=== PATIENT | male | born 1975 | race Caucasian/White ===

== ENCOUNTER → 2017-12-25 | Outpatient (CLI) | payer BC | LOC: MHCPAIN 07:55 | DX: G89.29 Other chronic pain (principal); M47.817 Spondylosis without myelopathy or radiculopathy, lumbosacral region; M47.814 Spondylosis without myelopathy or radiculopathy, thoracic region; M53.3 Sacrococcygeal disorders, not elsewhere classified; M79.2 Neuralgia and neuritis, unspecified; F17.200 Nicotine dependence, unspecified, uncomplicated | CPT/HCPCS: G0463 ==

== ENCOUNTER → 2018-01-25 | Outpatient (CLI) | payer BC | LOC: MHCPAIN 07:45 | DX: G89.29 Other chronic pain (principal); M47.817 Spondylosis without myelopathy or radiculopathy, lumbosacral region; M53.3 Sacrococcygeal disorders, not elsewhere classified; M47.814 Spondylosis without myelopathy or radiculopathy, thoracic region | CPT/HCPCS: G0463 ==

== ENCOUNTER → 2018-02-18 | Outpatient (CLI) | payer BC | LOC: MHCPAIN 11:55 | DX: Z53.8 Procedure and treatment not carried out for other reasons (principal) | CPT/HCPCS: J1040; Q9967 ==

== ENCOUNTER → 2020-04-28 | Outpatient (CLI) | payer BC | LOC: COL.RAD 04-15 09:45 | DX: R90.82 White matter disease, unspecified (principal) | CPT/HCPCS: A9585 ==

== ENCOUNTER → 2020-12-03 | Outpatient (CLI) | payer BC | LOC: COL.RAD 09:01 | DX: M51.26 Other intervertebral disc displacement, lumbar region (principal) | CPT/HCPCS: A9585 ==

== ENCOUNTER 2021-04-14 15:44 | Emergency (ER) | payer BC ==
[~2021-04-14] VITALS: Ht 175.3 cm; Wt 113.6 kg
[2021-04-14 16:01] VITALS: TEMP 98.5
[2021-04-14 16:27] LABS: ALANINE AMINOTRANSFERASE 58 U/L (4-49); ALBUMIN 4.2 gm/dL (3.5-5.0); ALKALINE PHOSPHATASE 76 U/L (50-136); ANION GAP 10 mmol/L (7-16); AST,SGOT 35 U/L (15-37); BILIRUBIN,TOTAL 0.5 mg/dL (0.0-1.0); BLOOD UREA NITROGEN 12 mg/dL (9-20); CALCIUM 9.2 mg/dL (8.4-10.2); CARBON DIOXIDE 26 mmol/L (22-30); CHLORIDE 102 mmol/L (98-107); GLUCOSE 395 mg/dL (74-106); POTASSIUM 4.3 mmol/L (3.4-5.0); SODIUM 138 mmol/L (137-145); TOTAL PROTEIN 8.1 gm/dL (6.4-8.2)
[2021-04-14 16:28] LABS: BASO % 0.6 % (0.0-2.0); EOS # 0.1 (0.0-0.7); EOS % 1.3 % (0-4.0); GRAN # 4.6 (1.4-6.5); GRAN % 64.9 % (42.2-75.2); HEMATOCRIT 50.8 % (42.0-52.0); HEMOGLOBIN 17.2 g/dl (13.5-18.0); LYMPH # 1.6 (1.2-3.4); LYMPH % 22.4 % (20.0-51.0); MEAN CELL VOLUME 93 fl (80.0-100.0); MEAN CORPUSCULAR HEMOGLOBIN 31 pg (27.0-31.0); MEAN CORPUSCULAR HGB CONC 34 g/dl (33.0-37.0); MEAN PLATELET VOLUME 10.5 fl (7.4-10.4); MONO # 0.7 (0.1-0.6); MONO % 10.4 % (1.7-9.3); PLATELET COUNT 254 K/mm3 (130-400); RED BLOOD COUNT 5.49 M/mm3 (4.20-5.60); REDCELL DISTRIBUTION WIDTH-CV 13.1 % (11.5-14.5)
[2021-04-14 16:41] LABS: PROTHROMBIN TIME 11.6 SECONDS (9.7-12.8); TROPONIN-I < 0.012 ng/mL (0.000-0.035)
[2021-04-14 16:43] LABS: PARTIAL THROMBOPLASTIN TIME 28.5 SECONDS (26.0-37.0)
[2021-04-14 18:07] VITALS: BP 144/73; PULSE 84
== END 2021-04-14 18:07 | disposition home or self-care (01) ==
LOC: COL.ER 15:44
PROVIDERS: Family Medicine
DX: E86.0 Dehydration (principal); E10.9 Type 1 diabetes mellitus without complications; F17.210 Nicotine dependence, cigarettes, uncomplicated
CPT/HCPCS: J7120

== ENCOUNTER 2022-01-11 15:07 | Inpatient (IN) | payer BC ==
[~2022-01-11] VITALS: Ht 177.8 cm; Wt 101.3 kg
[2022-01-11] MEDS ORDERED: AMPICILLIN AND1 PD3 INJ (16:23)
[2022-01-11] MEDS ORDERED: VANCOMYCIN IV (16:25)
[2022-01-11] MEDS ORDERED: AMOXICILLIN 8751 TAB PO (16:26)
[2022-01-11] MEDS ORDERED: NOVOLOG FLEX100 U/ML SQ (16:29)
[2022-01-11] MEDS ORDERED: NOVOLOG FLEX100 U/ML (16:30)
[2022-01-11] MEDS ORDERED: ASPIRIN 81M81 MG/TA2 PO (16:32)
[2022-01-11] MEDS ORDERED: SEMGLEE (Y100 UNIT/2 SQ (16:32)
[2022-01-11] MEDS ORDERED: LIPITOR20 MG PO (16:33)
[2022-01-11] MEDS ORDERED: PLAVIX 75MG TAB75 MG PO (16:33)
[2022-01-11] MEDS ORDERED: NEURONTIN300 MG/CAP PO (16:34)
[2022-01-11] MEDS ORDERED: ZETIA 10MG TAB10 MG PO (16:34)
[2022-01-11] MEDS ORDERED: LOPID 600M600 MG/TAB PO (16:35)
[2022-01-11] MEDS ORDERED: PRINIVIL20 MG PO ×2 (16:36)
[2022-01-11] MEDS ORDERED: LOPRESSOR 550 MG/TAB PO (16:37)
[2022-01-11] MEDS ORDERED: VITAMIN D31000 IU PO (16:38)
[2022-01-11 17:27] VITALS: BP 119/56; PULSE 74; TEMP 99.7
--- NOTE | 2022-01-11 17:41 | NUR ---
Pt arrived to unit at approx 1720. Admission assessment and intake completed. Left inner leg has approx 57 gab. One suture noted to inner thigh. No other skin concerns. Orientation provided to room and unit. Pt. denies valuables. Call light is within his reach. He denies further needs at this time
[2022-01-11 18:05] VITALS: BP 119/56; PULSE 74; TEMP 99.7
--- NOTE | 2022-01-11 18:42 | NUR ---
Dsg change completed to left leg incision. Approx 57 gab present. Incision is well approximated w/out redness, swelling, drainage. Xeroform, abd pads placed above gab. 2 circular wounds present to anterior thigh from drains that were removed prior to admission - covered with bandaids. One suture to inner thigh noted - CDI. Jose G wrap applied from thigh to mid calf
--- NOTE | 2022-01-11 18:57 | NUR ---
PICC Line caps changed x 2. Flushes well with blood return noted
--- NOTE | 2022-01-11 21:00 | NUR ---
PT RESTING IN BED. RELAXED. PAIN UNDER CONTROL. DENIES NEEDS AT THIS TIME. CALL LIGHT IN REACH. BED ALARM SET.
[2022-01-12 06:22] VITALS: BP 107/54; PULSE 74; TEMP 98
--- NOTE | 2022-01-12 06:25 | NUR ---
PT HAS SLEPT WELL THROUGH THE NIGHT. RUSS WRAP TO LT LEG INTACT.
--- NOTE | 2022-01-12 14:09 | NUR ---
PATIENT DRESSING TO LEFT INNER THIGH CHANGED THIS MORNING. REINFORCED WITH MORE XEROFORM AND ABD. RUSS WRAP REWRAPPED.
--- NOTE | 2022-01-12 15:10 | NUR ---
Photo Lab Manager met with patient to complete initial intake as patient is new to [facility]. Patient lives alone in [place] and sees Dr. Alexander for primary care. Patient obtains medications from [facility] in and is employed at [employer] in [place]. Patient does not have any DME and is normally independent with ADLS. Patient wanted to complete DPOA-HC and chose to designate his sister, Laquita and friend, Brie. SW placed copy in chart and provided original and copies to patient. SW will continue to monitor for discharge needs.
[2022-01-12 17:58] VITALS: BP 115/49; PULSE 79; TEMP 99
--- NOTE | 2022-01-12 21:24 | NUR ---
PT RESTING IN BED. ABLE TO MOBILIZE IN BED FOR COMFORT. SEE NOTES ABOUT RED RASH TO BACK AND COCCYX IN ASSESSMENT NOTES. PT STILL HUNGRY AFTER DINNER. AT SANDWICH AND APPLESAUCE. VANCOMYCIN IN FUSING TO RT PICC LINE. NO OTHER NEEDS. CALL LIGHT IN REACH, BED ALARM SET.
[2022-01-13 05:42] VITALS: BP 111/47; PULSE 75; TEMP 98
--- NOTE | 2022-01-13 05:50 | NUR ---
PT NOT REEIVING ADEQUATE PAIN RELIEF. GAVE 2ND NORCO AT THIS TIME. CALL LIGHT IN REACH. BED ALARM SET
--- NOTE | 2022-01-13 08:18 | NUR ---
PATIENT HAS NO NEW CONCERNS. PATIENT GIVEN PRN PAIN MEDICATION EARLY THIS MORNING. BLOOD SUGARS STABLE.
[2022-01-13 18:00] VITALS: BP 111/51; PULSE 76; TEMP 99.7
--- NOTE | 2022-01-13 20:56 | NUR ---
ASSESSMENT COMPLETE. PT. LYING IN BED WATCHING TV. A&O. VANCO INFUSING INTO RIGHT UPPER PICC. DRESSING TO INNER THIGH IS COVERED WITH AN RUSS WRAP. CDI. PT. COMPLAING OF PAIN 04/22. NOCRO WAS GIVEN (SEE EMAR). COCCYX IS RED AND SPLOTCHY. CREAM APPLIED. CALL LIGHT IN REACH. NO FURTHER NEEDS.
[2022-01-14 05:28] VITALS: BP 101/46; PULSE 69; TEMP 98
--- NOTE | 2022-01-14 08:00 | NUR ---
Patient sitting up in bed, A&Ox4. VSS. IV CDI. Left leg dressing CDI. Reports pain, pain medication given when requested. Patient independent with feeds and urinal. Call light within reach
[2022-01-14 10:37] VITALS: BP 99/48; PULSE 65
--- NOTE | 2022-01-14 11:00 | NUR ---
Dressing changed to left leg. Gab CDI. xeroform applied on gab and abd pad over gab with shanell wrap. Firm lump noted on inner thigh, PA aware. Left leg elevated on pillows. Patient independent with repositioning in bed. Call light within reach
[2022-01-14 17:20] VITALS: BP 103/42; PULSE 71; TEMP 97.9
--- NOTE | 2022-01-14 17:43 | NUR ---
Patient sitting up in bed watching TV. Worked with therapy today and tolerated well. Dressing changed on left leg, gab CDI, elevated on pillow. Pain medication given when requested. Patient independent with fees and repositioning in bed. Call light within reach
--- NOTE | 2022-01-14 21:50 | NUR ---
ASSESSMENT COMPLETE. PT LYING IN BED WATCHING TV. A&O. PT. COMPLAING OF PAIN IN HIS INNER LEFT THIGH. NORCO WAS GIVEN (SEE EMAR). DRESSING TO THIGH IS CDI. CALL LIGHT IN REACH. NO FURTHER NEEDS AT THIS TIME.
--- NOTE | 2022-01-15 05:54 | NUR ---
PT. HAD AN UNEVENTUFUL NIGHT SLEEPING. NO NEEDS THROUGHOUT THE NIGHT.
[2022-01-15 06:01] VITALS: BP 101/51; PULSE 67; TEMP 98.7
--- NOTE | 2022-01-15 07:39 | NUR ---
Shift report received from rn shift mgr RN. Pt. awake and resting in bed with bed in semi-iglesias's position. He denies pain or discomfort. Call light is within his reach
--- NOTE | 2022-01-15 12:23 | NUR ---
Pt resting in right side lying position in bed. He reports pain at 7/10. PRN pain medication given. Jose G wrap/dressing to LLE is CDI. He denies further needs at this time. Call light is within his reach
--- NOTE | 2022-01-15 14:50 | NUR ---
Pt reporting that he has not received Erasmo supplement (breakfast, lunch), Glucerna at 1400 for the last 2 days. He reports he did not receive an HS snack yesterday. Called [facility] and spoke with Addis who verified receipt of supplement orders and that she would "make a note" to make sure snacks/supplements were delivered. Mae also notified. Glucerna was not delivered during 1400 time frame. Called [facility] again and spoke with Addis who stated "I'm not sure why he isn't getting it" and that she would "send" the Glucerna up.
[2022-01-15 17:37] VITALS: BP 111/66; PULSE 71; TEMP 98.6
--- NOTE | 2022-01-15 17:46 | NUR ---
Pt resting in supine in bed. HOB elevated approx 20 degrees. He reports no bowel movement x 3 days. Pt. declined PRN stool softener/laxative and reports that skipping 2-4 days is not unusual for him. Will continue to monitor. He reports pain at 4/10. Dressing to LLE is CDI. LLE elevated on pillow. He denies further needs at this time. Call light is within his reach
--- NOTE | 2022-01-15 19:15 | NUR ---
RECEIVED CHANGE OF SHIFT REPORT FROM DAY SHIFT RN.
[2022-01-16 05:33] VITALS: BP 106/46; PULSE 64; TEMP 98
[2022-01-16 06:47] LABS: BASO % 0.5 % (0.0-2.0); EOS # 0.2 K/mm3 (0.0-0.7); EOS % 3.5 % (0.0-4.0); GRAN # 3.5 K/mm3 (1.4-6.5); GRAN % 52.3 % (42.2-75.2); HEMOGLOBIN 10.6 g/dl (13.5-18.0); LYMPH # 2.1 K/mm3 (1.2-3.4); LYMPH % 31.4 % (20.0-51.0); MEAN CELL VOLUME 98 fl (80.0-100.0); MEAN CORPUSCULAR HEMOGLOBIN 30 pg (27-31); MEAN CORPUSCULAR HGB CONC 30 g/dl (33.0-37.0); MEAN PLATELET VOLUME 9.8 fl (7.4-10.4); MONO # 0.7 K/mm3 (0.1-0.6); MONO % 11.2 % (1.7-9.3); PLATELET COUNT 396 K/mm3 (130-400); RED BLOOD COUNT 3.57 M/mm3 (4.20-5.60); REDCELL DISTRIBUTION WIDTH-CV 13.2 % (11.5-14.5)
[2022-01-16 07:01] LABS: ALBUMIN 2.5 gm/dL (3.5-5.0); BILIRUBIN,TOTAL 0.4 mg/dL (0.2-1.2); C-REACTIVE PROTEIN 2.89 mg/dL (0.00-0.50); CALCIUM 9.6 mg/dL (8.4-10.2); CREATININE, serum 0.69 mg/dL (0.72-1.25); POTASSIUM 4.3 mmol/L (3.5-4.5); TOTAL PROTEIN 7.9 gm/dL (6.2-8.1)
--- NOTE | 2022-01-16 07:24 | NUR ---
CHANGE OF SHIFT REPORT GIVEN TO DAY SHIFT YADY RYAN
--- NOTE | 2022-01-16 07:57 | NUR ---
Shift report received from pattern carrier RN. Pt. awake and resting in bed. LLE elevated on pillows. PRN pain medication given during noc shift. Pt. denies further needs at this time. Call light is within his reach
--- NOTE | 2022-01-16 09:36 | NUR ---
Pt resting supine in bed. He has returned from PT. Incision to LLE dressing change completed. Firm area below incision noted to inner, upper thigh - area assessed by Dr. Corey who has contact surgeon. Pt. reporting increased pain to this area. LLE elevated on 3 pillows at his request. Call light is within his reach
--- NOTE | 2022-01-16 11:35 | NUR ---
SW met with the patient to introduce oneself and to follow up after the weekend. The patient states that he is doing well. He states that he heard he may be able to discharge on Sunday, but is unsure of what equipment he would need or if he will need any services. SW to follow up with IPR team.
--- NOTE | 2022-01-16 12:18 | NUR ---
Pt. sitting up in bed. LLE is elevated on 3 pillows. U/S tech called and will be coming up in approx 20 minutes for LLE U/S. Pt. is aware. He denies further needs at this time. Call light is within his reach
--- NOTE | 2022-01-16 13:08 | NUR ---
Tube feeding declined. Gastric residual = 50 ml
[2022-01-16 17:12] VITALS: BP 105/71; PULSE 81; TEMP 98.9
--- NOTE | 2022-01-16 19:00 | NUR ---
RECEIVED CHANGE OF SHIFT REPORT FROM DAY SHIFT RN.
[2022-01-16 20:50] VITALS: BP 129/59
[2022-01-17 05:36] VITALS: BP 104/56; PULSE 71; TEMP 97.5
--- NOTE | 2022-01-17 07:13 | NUR ---
CHANGE OF SHIFT REPORT GIVEN TO DAY SHIFT SLOANE RYAN.
[2022-01-17] MEDS ORDERED: NICODERM C21 MG/PATC TD (13:22)
[2022-01-17] MEDS ORDERED: AMOXICILLIN 8751 TAB PO (13:22)
[2022-01-17] MEDS ORDERED: NORCO 325 MG-7.1 TAB PO (13:24)
--- NOTE | 2022-01-17 14:14 | NUR ---
Ifrah, [facility] Director, notified JEANNIE that they have set a discharge date for today on the patient. The team is recommending a home exercise program and he does not need any equipment. JEANNIE met with the patient to review the plan. The patient is in agreement to discharge today and had no concerns for SW. He did ask if SW could get ahold of his sister, Laquita, and ask that she pick him up today at 1800. SW notified the patient's sister, Laquita. She states that someone will hand picker her brother up this evening and transport him home. The patient is to discharge back home today, 01/17, with the home exercise program. No additional needs at this time.
== END 2022-01-17 16:37 | disposition home or self-care (01) | DRG 947 ==
PROVIDERS: ADMIT Physical Medicine & Rehabilitation Sports Medicine
DX: R53.81 Other malaise (principal); M72.6 Necrotizing fasciitis; E44.0 Moderate protein-calorie malnutrition; E11.628 Type 2 diabetes mellitus with other skin complications; I10 Essential (primary) hypertension; E78.5 Hyperlipidemia, unspecified; R26.89 Other abnormalities of gait and mobility; Z73.6 Limitation of activities due to disability; Z79.4 Long term (current) use of insulin; Z79.82 Long term (current) use of aspirin; Z79.899 Other long term (current) drug therapy; Z79.2 Long term (current) use of antibiotics; F17.200 Nicotine dependence, unspecified, uncomplicated; B95.1 Streptococcus, group B, as the cause of diseases classified elsewhere; I69.392 Facial weakness following cerebral infarction; Z68.32 Body mass index [BMI] 32.0-32.9, adult
CPT/HCPCS: 99223; 99231-AI; 99232-AI; J0295; J1650; J1815; J3370; J7050